=== PATIENT | female | born 1970 | race African-American/Black ===

== ENCOUNTER 2020-07-18 12:51 | Emergency (ER) | payer OTHER ==
[~2020-07-18] VITALS: Ht 157.5 cm; Wt 122.0 kg
[2020-07-18] MEDS ORDERED: PREDNISONE 20 M20 MG PO (15:11)
[2020-07-18] MEDS ORDERED: CYCLOBENZAPRINE5 MG PO (15:11)
[2020-07-18] MEDS ORDERED: NORCO 10-325 T1 EACH PO (15:11)
[2020-07-18 15:32] VITALS: BP 209/117
== END 2020-07-18 15:32 | disposition home or self-care (01) ==
LOC: ER 12:51
DX: M51.26 Other intervertebral disc displacement, lumbar region (principal); M54.41 Lumbago with sciatica, right side

== ENCOUNTER 2020-08-03 19:44 | Emergency (ER) | payer OTHER ==
[~2020-08-03] VITALS: Ht 157.5 cm; Wt 121.1 kg
[~2020-08-03 19:44] MED LIST: CYCLOBENZAPRINE5 MG PO; NORCO 10-325 T1 EACH PO; PREDNISONE 20 M20 MG PO
[2020-08-03] MEDS ORDERED: LISINOPRIL10 MG PO (19:51)
[2020-08-03] MEDS ORDERED: METFORMIN HCL500 M3 PO (19:52)
[2020-08-03] MEDS ORDERED: LANTUS SUBQ (19:52)
[2020-08-03] MEDS ORDERED: GLYBURIDE 5 MG T5 M1 PO (19:52)
[2020-08-03] MEDS ORDERED: CYCLOBENZAPRINE5 MG PO (20:58)
[2020-08-03] MEDS ORDERED: TRAMADOL 50 MG50 MG PO (20:58)
[2020-08-03] MEDS ORDERED: PREDNISONE 20 M20 MG PO (20:59)
[2020-08-03 21:39] VITALS: BP 187/115
== END 2020-08-03 21:41 | disposition home or self-care (01) ==
LOC: ER 19:44
DX: M54.42 Lumbago with sciatica, left side (principal); E11.9 Type 2 diabetes mellitus without complications; I10 Essential (primary) hypertension; Z79.899 Other long term (current) drug therapy; Z79.4 Long term (current) use of insulin

== ENCOUNTER 2020-08-31 09:05 | Emergency (ER) | payer OTHER ==
[~2020-08-31] VITALS: Ht 157.5 cm; Wt 122.5 kg
[~2020-08-31 09:05] MED LIST changes: +GLYBURIDE 5 MG T5 M1 PO; +LANTUS SUBQ; +LISINOPRIL10 MG PO; +METFORMIN HCL500 M3 PO; +TRAMADOL 50 MG50 MG PO
[2020-08-31] MEDS ORDERED: ULTRAM 50MG TAB50 MG PO (09:40)
[2020-08-31] MEDS ORDERED: PREDNISONE50 MG PO (09:40)
[2020-08-31 09:42] VITALS: BP 148/89
== END 2020-08-31 09:56 | disposition home or self-care (01) ==
LOC: ER 09:05
DX: M54.5 Low back pain (principal); I10 Essential (primary) hypertension; E11.9 Type 2 diabetes mellitus without complications; Z79.4 Long term (current) use of insulin; Z79.899 Other long term (current) drug therapy

== ENCOUNTER 2020-09-10 19:32 | Emergency (ER) | payer OTHER ==
[~2020-09-10] VITALS: Ht 157.5 cm; Wt 122.5 kg
[~2020-09-10 19:32] MED LIST changes: +PREDNISONE50 MG PO; +ULTRAM 50MG TAB50 MG PO
[2020-09-10] MEDS ORDERED: METFORMIN HCL500 M1 PO (19:42)
[2020-09-10 20:03] LABS: URINE BILIRUBIN NEGATIVE (Negative); URINE BLOOD NEGATIVE (Negative); URINE CLARITY CLEAR; URINE COLOR YELLOW; URINE GLUCOSE-RANDOM* 3+ (Negative); URINE KETONES NEGATIVE (Negative); URINE LEUKOCYTES-REFLEX NEGATIVE (Negative); URINE NITRITE-REFLEX NEGATIVE (Negative); URINE PROTEIN (DIPSTICK) NEGATIVE (Negative); URINE UROBILINOGEN 0.2 E.U./dl (0.2-1.0)
[2020-09-10 20:24] LABS: ABSOLUTE NEUTROPHILS 6.1 thou/uL (1.4-8.2); BASOPHILS 0.5 % (0.0-2.0); EOSINOPHILS 0.7 % (0.0-3.0); HEMATOCRIT 37.9 % (37.0-47.0); HEMOGLOBIN 12.4 gm/dL (12.0-15.0); LYMPHOCYTES 30.2 % (24.0-44.0); MCH 28.1 pg (26.0-34.0); MCHC 32.7 g/dL (28.0-37.0); MCV 85.9 fL (80.0-100.0); MONOCYTES 6.7 % (1.0-8.0); PLATELET COUNT 290 thou/uL (150-400); POLYS 61.9 % (36.0-66.0); RBC 4.41 mil/uL (4.20-5.00); RDW 14.2 % (10.5-14.5); WBC 9.9 thou/uL (4.0-11.0)
[2020-09-10 20:37] LABS: CALCIUM 9.4 mg/dL (8.5-10.1); CREATININE 1.9 mg/dL (0.6-1.0); POTASSIUM 5.4 mmol/L (3.5-5.1)
[2020-09-10 20:43] LABS: ALBUMIN 3.4 g/dL (3.4-5.0); TOTAL BILIRUBIN 0.5 mg/dL (0.2-1.0); TOTAL PROTEIN 8.2 g/dL (6.4-8.2)
[2020-09-11 01:06] LABS: CALCIUM 8.5 mg/dL (8.5-10.1); CREATININE 1.3 mg/dL (0.6-1.0)
[2020-09-11 01:18] VITALS: BP 142/91
== END 2020-09-11 01:20 | disposition admitted as inpatient to this hospital (09) ==
LOC: ER 19:32
PROVIDERS: Emergency Medicine
DX: E11.65 Type 2 diabetes mellitus with hyperglycemia (principal); I10 Essential (primary) hypertension; Z79.899 Other long term (current) drug therapy; Z79.4 Long term (current) use of insulin

== ENCOUNTER 2020-10-01 11:07 | Emergency (ER) | payer OTHER ==
[~2020-10-01] VITALS: Ht 157.5 cm; Wt 122.5 kg
[~2020-10-01 11:07] MED LIST changes: +METFORMIN HCL500 M1 PO
[2020-10-01 11:48] LABS: URINE BILIRUBIN NEGATIVE (Negative); URINE BLOOD NEGATIVE (Negative); URINE CLARITY CLEAR; URINE COLOR YELLOW; URINE GLUCOSE-RANDOM* 3+ (Negative); URINE KETONES NEGATIVE (Negative); URINE LEUKOCYTES-REFLEX NEGATIVE (Negative); URINE NITRITE-REFLEX NEGATIVE (Negative); URINE PROTEIN (DIPSTICK) TRACE (Negative); URINE UROBILINOGEN 0.2 E.U./dl (0.2-1.0)
[2020-10-01 12:07] LABS: BE(vivo) 4.3 mmol/L (-2 to +3); HCO3 32.2 mmol/L (22.0-26.0); PCO2 VENOUS 62.9 mmHg (41.0-51.0); PO2 VENOUS 34.3 mmHg (35.0-45.0)
[2020-10-01 12:14] LABS: ABSOLUTE NEUTROPHILS 7.3 thou/uL (1.4-8.2); BASOPHILS 0.6 % (0.0-2.0); EOSINOPHILS 1.6 % (0.0-3.0); HEMATOCRIT 39.1 % (37.0-47.0); HEMOGLOBIN 12.5 gm/dL (12.0-15.0); LYMPHOCYTES 22.1 % (24.0-44.0); MCH 27.7 pg (26.0-34.0); MCV 86.4 fL (80.0-100.0); MONOCYTES 6.1 % (1.0-8.0); POLYS 69.6 % (36.0-66.0); RBC 4.52 mil/uL (4.20-5.00); WBC 10.5 thou/uL (4.0-11.0)
[2020-10-01 12:30] LABS: ALBUMIN 3.5 g/dL (3.4-5.0); CALCIUM 10.3 mg/dL (8.5-10.1); CREATININE 1.8 mg/dL (0.6-1.0); POTASSIUM 4.8 mmol/L (3.5-5.1); TOTAL BILIRUBIN 0.4 mg/dL (0.2-1.0); TOTAL PROTEIN 8.5 g/dL (6.4-8.2)
[2020-10-01 12:42] LABS: LARGE PLATELETS OCCASIONAL; PLATELET COUNT 273 thou/uL (150-400); PLATELET ESTIMATE NORMAL
[2020-10-01] MEDS ORDERED: ULTRAM 50MG TAB50 MG PO (15:09)
[2020-10-01 17:09] VITALS: BP 123/74
== END 2020-10-01 17:09 | disposition home or self-care (01) ==
LOC: ER 11:07
PROVIDERS: Physician Assistant
DX: M54.5 Low back pain (principal); R73.9 Hyperglycemia, unspecified; I10 Essential (primary) hypertension; Z98.51 Tubal ligation status; Z79.899 Other long term (current) drug therapy

== ENCOUNTER 2020-11-22 13:01 | Emergency (ER) | payer OTHER ==
[~2020-11-22] VITALS: Ht 157.5 cm; Wt 117.9 kg
[2020-11-22 13:02] VITALS: BP 147/98
[2020-11-22] MEDS ORDERED: ZANAFLEX4 MG PO (13:48)
[2020-11-22] MEDS ORDERED: MOBIC7.5 MG PO (13:48)
== END 2020-11-22 13:59 | disposition home or self-care (01) ==
LOC: ER 13:01
DX: S39.012A Strain of muscle, fascia and tendon of lower back, initial encounter (principal); M54.41 Lumbago with sciatica, right side; E11.9 Type 2 diabetes mellitus without complications; I10 Essential (primary) hypertension; Z98.51 Tubal ligation status; Z79.899 Other long term (current) drug therapy; Z79.4 Long term (current) use of insulin; X58.XXXA Exposure to other specified factors, initial encounter; Y93.89 Activity, other specified; Y92.098 Other place in other non-institutional residence as the place of occurrence of the external cause; Y99.8 Other external cause status

== ENCOUNTER 2021-03-07 18:21 | Inpatient (IN) | payer OTHER ==
[~2021-03-07] VITALS: Ht 157.5 cm; Wt 122.6 kg
[~2021-03-07 18:21] MED LIST changes: +MOBIC7.5 MG PO; +ZANAFLEX4 MG PO
[2021-03-07 18:42] VITALS: BP 129/78
[2021-03-07 19:17] LABS: URINE BILIRUBIN NEGATIVE (Negative); URINE BLOOD NEGATIVE (Negative); URINE CLARITY CLEAR; URINE COLOR STRAW; URINE GLUCOSE-RANDOM* 3+ (Negative); URINE KETONES NEGATIVE (Negative); URINE LEUKOCYTES-REFLEX NEGATIVE (Negative); URINE NITRITE-REFLEX NEGATIVE (Negative); URINE PROTEIN (DIPSTICK) NEGATIVE (Negative); URINE SPECIFIC GRAVITY <= 1.005 (1.005-1.035); URINE UROBILINOGEN 0.2 E.U./dl (0.2-1.0)
[2021-03-07 19:52] LABS: ABSOLUTE NEUTROPHILS 4.3 thou/uL (1.4-8.2); BASOPHILS 0.6 % (0.0-2.0); HEMATOCRIT 39.8 % (37.0-47.0); HEMOGLOBIN 12.4 gm/dL (12.0-15.0); LYMPHOCYTES 23.7 % (24.0-44.0); MCH 27.2 pg (26.0-34.0); MCHC 31.1 g/dL (28.0-37.0); MCV 87.5 fL (80.0-100.0); MONOCYTES 10.7 % (1.0-8.0); PLATELET COUNT 223 thou/uL (150-400); RBC 4.55 mil/uL (4.20-5.00); WBC 6.8 thou/uL (4.0-11.0)
[2021-03-07 20:08] LABS: CREATININE 2.4 mg/dL (0.6-1.0)
[2021-03-07 20:11] LABS: ALBUMIN 3.3 g/dL (3.4-5.0); TOTAL BILIRUBIN 0.3 mg/dL (0.2-1.0); TOTAL PROTEIN 8.4 g/dL (6.4-8.2)
[2021-03-07 20:16] LABS: POTASSIUM 6.1 mmol/L (3.5-5.1)
[2021-03-07 23:15] VITALS: BP 148/92
[2021-03-07 23:26] VITALS: BP 160/87
[2021-03-08 00:42] VITALS: BP 133/80
[2021-03-08 04:01] VITALS: BP 120/62
[2021-03-08 04:54] LABS: CALCIUM 8.4 mg/dL (8.5-10.1); CREATININE 1.6 mg/dL (0.6-1.0); HEMATOCRIT 35.8 % (37.0-47.0); HEMOGLOBIN 11.8 gm/dL (12.0-15.0); MCH 28.1 pg (26.0-34.0); POTASSIUM 4.7 mmol/L (3.5-5.1); RBC 4.21 mil/uL (4.20-5.00); RDW 13.7 % (10.5-14.5); WBC 7.1 thou/uL (4.0-11.0)
--- NOTE | 2021-03-08 07:30 | EKG ---
[place] [address] [facility] [place] [address] ELECTROCARDIOGRAM REPORT Name: LINO FUENTES Room #: 209-P ADM IN M.R.#: [id number] Admission: 03/07/21 Attend Phys: Rama Velasquez MD Discharge: Date of : 66 Report #: [id number] [facility] ED Test Date: 2021-03-07 Test Time: 19:46:08 Pat Name: LINO FUENTES Department: Room: 209 Gender: F [employer]der Fabricator: : 1970 Requested By: Hemant Cooney Order Number: [id number] MD: Royce Vang Measurements Intervals [place] Rate: 82 P: 49 OK: 152 QRS: -15 QRSD: 95 T: 12 QT: 379 QTc: 443 Interpretive Statements Sinus rhythm Probable left atrial enlargement Borderline left axis deviation No previous ECG available for comparison Electronically Signed On 03-08-2021 7:30:43 CDT by Royce Vang [email or web address] <ELECTRONICALLY SIGNED> By: Royce Vang MD, [facility] 03/08/21 0730 194 45 Royce Vang MD, FACC /EPI
[2021-03-08 08:22] VITALS: BP 74/49
[2021-03-08 08:52] VITALS: BP 123/85
[2021-03-08 11:50] LABS: CALCIUM 8.3 mg/dL (8.5-10.1); CREATININE 1.4 mg/dL (0.6-1.0); POTASSIUM 4.5 mmol/L (3.5-5.1)
--- NOTE | 2021-03-08 14:56 | NUR ---
Nutrition followup: pt continues on CCU. NPO today for wound debridement. 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 Continues to eat well, 90-110% of meals. Pt has ensure pudding and beneprotein powder order on trays. Unsure if pt eating as is not recorded and unable to speak with pt as she is out of room for procedure. Pt had previously requested due to dislike of liquid supplements. Hospital weights running significantly higher than pt reported UBW of 152#. Although most recent weight of 187# was listed as standing scale which should be accurate. Continue present interventions and keep at low nutrition risk.
[2021-03-08 16:29] VITALS: BP 136/85
[2021-03-08 20:05] VITALS: BP 140/83
[2021-03-09 03:33] VITALS: BP 122/61
[2021-03-09 05:23] LABS: CALCIUM 8.3 mg/dL (8.5-10.1); CREATININE 1.3 mg/dL (0.6-1.0); MAGNESIUM 1.6 mg/dL (1.8-2.4); POTASSIUM 4.3 mmol/L (3.5-5.1)
[2021-03-09 05:26] LABS: HEMATOCRIT 33.6 % (37.0-47.0); MCH 27.8 pg (26.0-34.0); MCHC 32.6 g/dL (28.0-37.0); MCV 85.2 fL (80.0-100.0); RBC 3.94 mil/uL (4.20-5.00); RDW 13.8 % (10.5-14.5); WBC 6.2 thou/uL (4.0-11.0)
--- NOTE | 2021-03-09 05:35 | NUR ---
UP ADLIB.NAUSEA RESOLVED.PT REQUEST IV FLUID TO BE OFF THIS MORNING.BM X1 MONITOR SHOWS SR.POC CONTINUED.
[2021-03-09 07:12] LABS: GLYCOHEMOGLOBIN (HGB A1C) 14.1 % (4.8-5.6)
[2021-03-09 08:00] VITALS: BP 157/82
[2021-03-09 12:00] VITALS: BP 144/74
[2021-03-09] MEDS ORDERED: LANTUS SOL100 UNIT/1 SUBQ (14:32)
[2021-03-09] MEDS ORDERED: FREESTYLE LANC1 EACH MISCELL (14:33)
[2021-03-09] MEDS ORDERED: TEST STRIPS1 EACH SUBQ (14:34)
--- NOTE | 2021-03-09 15:14 | NUR ---
met with patient who reports she has no insurance. She reports she has a new job at [employer] and plans to have insurance soon. She has a dtr who recently moved in with her in [facility]. She reports independent with all adls and drives. Gave health resource guide and plan to vouch medications at pa.
[2021-03-09] MEDS ORDERED: ONE TOUCH ULTR1 EAC3 SUBQ (15:31)
[2021-03-09] MEDS ORDERED: PEN NEEDLE1 EA13 SUBQ (15:53)
[2021-03-09 16:00] VITALS: BP 148/98
[2021-03-09 16:55] VITALS: BP 148/98
--- NOTE | 2021-03-09 18:35 | NUR ---
PATIENT DISCHARGED TEACHING AND EDUCATION DONE, NO QUESTIONS OR CONCERNS AT TIME OF EDUCATION. IV AND TELE REMOVED. PATIENT GIVEN LANTUS AND DIABETIC SUPPLYS SET UP BY SOCIAL WORK.
== END 2021-03-09 18:36 | disposition home or self-care (01) | DRG 638 ==
LOC: ER 18:21 → 2N 21:32 → EROBS 21:32 → 2N 03-08 00:03
PROVIDERS: Emergency Medicine; Nurse Practitioner Family; ADMIT Internal Medicine; ATTEND Internal Medicine
DX: E11.65 Type 2 diabetes mellitus with hyperglycemia (principal); N17.9 Acute kidney failure, unspecified; E87.1 Hypo-osmolality and hyponatremia; Z68.42 Body mass index [BMI] 45.0-49.9, adult; I10 Essential (primary) hypertension; E87.5 Hyperkalemia; E66.9 Obesity, unspecified; G89.29 Other chronic pain; Z79.899 Other long term (current) drug therapy
CPT/HCPCS: 10081